=== PATIENT | female | born 1955 | race Two or more races ===

== ENCOUNTER 2024-06-24 20:35 | Emergency (ER) | payer OTHER ==
[~2024-06-24] VITALS: Ht 157.5 cm; Wt 104.8 kg
[2024-06-24] MEDS ORDERED: HYDR28.318 TP (23:40)
[2024-06-24 23:51] VITALS: BP 157/80; TEMP 97.5; O2SAT 98
== END 2024-06-24 23:51 | disposition home or self-care (01) ==
LOC: ER 20:38
DX: I83.812 Varicose veins of left lower extremity with pain (principal); I10 Essential (primary) hypertension; E11.9 Type 2 diabetes mellitus without complications
CPT/HCPCS: 93971-TC